=== PATIENT | male | born 1955 | race Caucasian/White ===

== ENCOUNTER 2016-08-17 10:24 | Emergency (ER) | payer OTHER, MEDICAID ==
[~2016-08-17 10:24] MED LIST: SULFAMETHOX/TMP 800/160 MG 1 TAB PO SCH
[2016-08-17 10:30] VITALS: TEMP 98.2
[2016-08-17] MEDS ORDERED: SULFAMETHOX/TMP 800/160 MG 1 TAB PO ONE (10:39)
--- NOTE | 2016-08-17 10:47 | EDPHY ---
H & P Stated Complaint: Bleeding on R Butt Cheek HPI/ROS: CHIEF COMPLAINT: Buttock bleeding HISTORY OF PRESENT ILLNESS: Patient has a right buttock bleeding and area of pain. This has been present on and off for months. This most recently over the past 2 days. It was moderately to severely painful yesterday. The pain has improved today. It has been draining spontaneously. No difficulty with bowel movements. No fecal material from the drain site. No fever or chills. He has not ever been evaluated for this despite recurrence of this. Usually resolve spontaneously. No other associated complaints or modifying factors. REVIEW OF SYSTEMS: Ten systems reviewed and are negative unless otherwise noted in the HPI EXAMINATION General Appearance: Alert, no distress Cardiovascular: Pulses normal throughout. Brisk cap refill Neurological: A&O, sensory symmetric, strength symmetric Skin: Warm and dry, no rash. There is abscess on the right buttock, approximately 5 cm lateral to the anus 3 o'clock. There is fluctuance and induration. Minimal surrounding erythema. Spontaneous drainage of purulent material. No fecal material present. Extremities: Nontender, no pedal edema Psychiatric: Mood and affect normal DIFFERENTIAL DIAGNOSES: Including but not limited to abscess, cellulitis, perirectal abscess, perianal abscess, pilonidal cyst. MDM: 10:40 a.m. Abscess to the right medial buttock. This is below the gluteal cleft and does not appear to be a pilonidal cyst. There is fluctuance and induration. I will proceed with incision and drainage with his consent. 10:55 a.m. Right buttock abscess. This is distant from the anus and does not have evidence of perianal abscess. No evidence of pilonidal cyst. There is no fecal material from the abscess cavity. Purulence was extruded. The pressure has relieved from the patient. Tolerated well without complication. Wound care discussed. Follow up here or with primary care physician in 48 hours for wound check continue Bactrim twice daily for 10 days until gone. Return sooner for signs of infection. PROCEDURE: Incision and Drainage Consent: Verbal Location: Right buttock medial Length: 2 cm Complexity: simple Anesthesia: Local, 1% lidocaine with epinephrine, 7 mL Procedure description: Area was prepped with Betadine and chlorhexidine. A 1.5 cm laceration was made in conjunction with Nasima's lines. There was he moderate expression of purulent material. No fecal material. Minimal venous bleeding. Tolerated well. Minimal loculations were explored and broken up. Irrigated with sterile saline. Expressed: 10 cc, purulent. No fecal material Wound care: Daily dressing changes and dressing changes after bowel movements. Follow-up: With primary care physician in 2 days for wound check or here for wound check at 2 days. Return sooner for signs of infection as discussed ED Precautions: Worsening pain. Erythema, edema, cyanosis, pallor, paresthesia or anesthesia. SUPERVISION: This patient was independently evaluated without direct examination by the attending physician. Case was discussed with attending physician. Source: Patient Exam Limitations: No limitations - Personal History Current Tetanus Diphtheria and Acellular Pertussis (TDAP): Yes Tetanus Vaccine Date: 07/2013 - Medical/Surgical History Hx Asthma: No Hx Chronic Respiratory Disease: No Hx Diabetes: No Hx Cardiac Disease: No Hx Renal Disease: No Hx Cirrhosis: No Hx Alcoholism: Yes Hx HIV/AIDS: No Hx Splenectomy or Spleen Trauma: No Other PMH: PMH- ANXIETY, ADHD, FORMER IVDA. PSH- L WRIST - Social History Smoking Status: Current every day smoker Constitutional: Initial Vital Signs Temperature (C) 98.2 F 08/17/16 10:27 Heart Rate 72 08/17/16 10:27 Respiratory Rate 18 08/17/16 10:27 Blood Pressure 127/81 H 08/17/16 10:27 O2 Sat (%) 97 08/17/16 10:27 O2 Delivery Mode Room Air Allergies/Adverse Reactions: pollen extracts Allergy (Verified 08/17/16 10:26) Home Medications: Medication Instructions Recorded Adderall Xr 10 mg Capsule 02/28/16 Buspar (*) 02/28/16 Sulfamethox/Tmp 800/160 mg 2 tab PO BID 10 Days 08/17/16 [Bactrim Ds] Departure - Departure Disposition: Home, Routine, Self-Care Clinical Impression: Abscess of buttock, right Condition: Good Instructions: Abscess (ED) Additional Instructions: Daily wound care as discussed. Dressing changes once daily and after bowel movements. Return here in 2 days for wound recheck. Follow up with primary care physician Dr. Bautista for definitive care. Return here for worsening symptoms Referrals: [facility],. [Clinic] - As per Instructions Prescriptions: Sulfamethox/Tmp 800/160 mg [Bactrim Ds] 2 tab PO BID 10 Days
[2016-08-17 11:46] VITALS: BP 145/81; PULSE 74; RESP 16; O2SAT 96
[2016-08-17] MEDS ORDERED: SULFAMETHOX/TMP 800/160 MG 1 TAB PO SCH (21:00)
== END 2016-08-17 11:45 | disposition home or self-care (01) ==
PROC: 0H98XZZ Drainage of Buttock Skin, External Approach (ICD-10-PCS; principal; 2016-08-17)
DX: L02.31 Cutaneous abscess of buttock (principal); F17.200 Nicotine dependence, unspecified, uncomplicated

== ENCOUNTER 2017-02-13 13:22 | Emergency (ER) | payer OTHER, MEDICAID ==
[2017-02-13 13:31] VITALS: O2SAT 96
--- NOTE | 2017-02-13 14:40 | EDPHY ---
General Narrative: CHIEF COMPLAINT: Possible strep throat HISTORY OF PRESENT ILLNESS: Patient complains of several days history of sore throat or runny nose. Associated with sinus congestion. Constant duration per [id number]. No chest pain. No cough. No fever chills. No headache. No neck pain or stiffness. He received his flu shot on January 17. Since then he has had symptoms wax and wane. They went away until few days ago. No other associated complaints or modifying factors. REVIEW OF SYSTEMS: Ten systems reviewed and are negative unless otherwise noted in the HPI PCP: Dr. Pierre at [facility] SPECIALISTS: None PAST MEDICAL HISTORY: Attention deficit hyperactivity disorder, anxiety PAST SURGICAL HISTORY: None SOCIAL HISTORY: Daily smoker. FAMILY HISTORY: Noncontributory EXAMINATION General Appearance: Alert, no distress Head: normocephalic, atraumatic Eyes: Pupils equal and round, no conjunctival pallor or injection ENT, Mouth: Mucous membranes moist. Uvula midline. Mild posterior erythema and cobblestoning. Postnasal drip. No exudate or edema. Airway widely patent Neck: Normal inspection, supple, non-tender Respiratory: Lungs are clear to auscultation. No wheezing, rhonchi or crackles. No diminishment. No retractions. No distress. Cardiovascular: Regular rate and rhythm. No murmur Gastrointestinal: Abdomen is soft and nontender Back: non-tender, no bony abnormalities Neurological: A&O, nonfocal, normal gait Skin: Warm and dry, no rash Extremities: Nontender, no pedal edema Psychiatric: Mood and affect normal DIFFERENTIAL DIAGNOSES: Including but not limited to viral pharyngitis, strep pharyngitis, upper respiratory infection, lower respiratory infection MDM: 2:37 p.m. Patient presented with concern for strep throat. He has had runny nose, sinus congestion and sore throat past few days. His only concern is whether not he has strep pharyngitis. He has no chest pain. No shortness of breath. He has no cough. No headache. No neck pain or stiffness. No fever chills. Rapid strep test is negative. Clinically, I do not appreciate the appearance of strep. I feel that he has a upper respiratory viral infection. Feel that he is stable for discharge home with anti-inflammatories and follow up with primary care physician. He has an appointment with her on next Thursday. He is also comfortable with this plan. He is discharged stable condition with ED precautions. - History Smoking Status: Current every day smoker - Objective Vital Signs: Initial Vital Signs Temperature (C) 97.5 F 02/13/17 13:29 Heart Rate 81 02/13/17 13:29 Respiratory Rate 20 02/13/17 13:29 Blood Pressure 163/91 H 02/13/17 13:29 O2 Sat (%) 96 02/13/17 13:29 O2 Delivery Mode Room Air Allergies/Adverse Reactions: pollen extracts Allergy (Verified 02/13/17 13:28) Home Medications: Medication Instructions Recorded Adderall Xr 10 mg Capsule 02/28/16 Buspar (*) 02/28/16 Laboratory Results: 02/13/17 02/13/17 Unknown 13:31 Group A Strep Screen NEGATIVE (NEGATIVE) Group A Strep DNA Pending Departure - Departure Disposition: Home, Routine, Self-Care Clinical Impression: URI (upper respiratory infection) Qualifiers: URI type: unspecified viral URI Qualified Code(s): J06.9 - Acute upper respiratory infection, unspecified Pharyngitis Qualifiers: Pharyngitis/tonsillitis etiology: unspecified etiology Qualified Code(s): J02.9 - Acute pharyngitis, unspecified Condition: Good Instructions: How to Stop Smoking (ED), Pharyngitis (ED), Upper Respiratory Infection (ED) Additional Instructions: 1. Increase fluid intake 2. Keep your appointment next Thursday with primary care physician 3. ED precautions as discussed Referrals: [facility] [Other] - As per Instructions
[2017-02-13 15:10] VITALS: BP 166/95; PULSE 87; RESP 16; TEMP 98.1
== END 2017-02-13 15:11 | disposition home or self-care (01) ==
DX: J06.9 Acute upper respiratory infection, unspecified (principal); F17.200 Nicotine dependence, unspecified, uncomplicated

== ENCOUNTER 2018-10-12 16:09 | Emergency (ER) | payer OTHER, MEDICAID | END 2018-10-12 17:56 | disposition home or self-care (01) ==

== ENCOUNTER 2018-10-14 15:18 | Emergency (ER) | payer OTHER, MEDICAID | END 2018-10-14 19:28 | disposition home or self-care (01) ==